=== PATIENT | female | born 1945 | race Caucasian/White ===

== ENCOUNTER → 2017-11-21 09:53 | Outpatient (CLI) | payer MEDICARE, OTHER, SELFPAY ==
[2017-11-21 10:44] LABS: Add Manual Diff / Slide Review NO; Eosinophils Percent Auto 4.2 % (2-4); Hematocrit 42.7 % (36-46); Hemoglobin 14.4 g/dL (12.0-16.0); Lymphocytes Percent Auto 21.2 % (25-40); Mean Corpuscular HGB Conc 33.7 % (30-36); Mean Corpuscular Hemoglobin 30.6 PG (26-34); Mean Corpuscular Volume 90.9 fL (80-100); Monocytes Percent Auto 9.1 % (3-14); Neutrophils Absolute Auto 3800 /uL (3000-5900); Neutrophils Percent Auto 64.5 % (50-75); Platelet Count 236 X10^3/uL (150-400); White Blood Cell Count 5.9 X10^3/uL (4.5-11.0)
[2017-11-21 11:36] LABS: Alanine Aminotransferase 29 IU/L (9-52); Albumin 4.3 g/dL (3.5-5.0); Albumin Globulin Ratio 1.6 (1.0-2.8); Alkaline Phosphatase 98 U/L (38-126); Aspartate Aminotransferase 27 IU/L (14-36); BUN Creatinine Ratio 16.7 (6-22); Bilirubin Total 0.7 mg/dL (0.2-1.3); Blood Urea Nitrogen 15 mg/dL (7-17); Calcium 10.1 mg/dL (8.4-10.2); Carbon Dioxide 30 mmol/L (22-32); Chloride 101 mmol/L (98-107); Cholesterol 197 mg/dL (140-199); Estimated Glomerular Filt Rate > 60.0 mL/min (>60); Globulin 2.7 g/dL (1.7-4.1); Glucose 92 mg/dL (80-110); HDL Cholesterol 56 mg/dL (40-60); HEMOLYSIS < 15 (0-50); LDL Cholesterol Calculated 104 mg/dL (<100); Potassium 4.7 mmol/L (3.4-5.1); Sodium 140 mmol/L (137-145); Triglycerides 185 mg/dL (35-150)
== END ==
PROVIDERS: PCP Family Medicine; Visit Provider Family Medicine
DX: E78.5 Hyperlipidemia, unspecified (principal); I10 Essential (primary) hypertension; I73.9 Peripheral vascular disease, unspecified; D18.03 Hemangioma of intra-abdominal structures; F41.8 Other specified anxiety disorders
CPT/HCPCS: 36415; 80053; 80061; 85025

== ENCOUNTER → 2017-12-26 09:02 | Outpatient (CLI) | payer MEDICARE, OTHER, SELFPAY ==
--- NOTE | 2017-12-26 | DI.ECHO.S_ITS ---
[facility] +---------+ : : [address] : [address] : : : : [id number] : : : : Phone: [phone]+ Echocardiogram Report + + :Name: LELAND GUTIERREZ Study Date: 12/26/2017 Height: 63 in : :[facility] Weight: 141 lb : : Gender: Female BSA: 1.7 m2 : :: 1945 Age: 72 yrs BP: 140/58 mmHg: :Reason For Study: Mitral Valve- Regurgitation : : Performed By: Korin Mcgraw : :Referring: JC LUGO : + + Interpretation Summary 1) Normal left ventricular thickness, size, wall motion, and systolic function (EF 60-65%). 2) Normal right ventricular size and function. 3) There is mild mitral regurgitation. 4) No prior Echo available for comparison. Procedure: A two-dimensional transthoracic echocardiogram with color flow and Doppler was performed. The study quality was technically adequate. There is no prior echocardiogram noted for this patient. The patient was in normal sinus rhythm during the exam. Left Ventricle: The left ventricle is normal in size, wall thickness, and systolic function without any focal wall motion abnormalities. The ejection fraction is estimated to be 60-65%. Assessment of diastolic parameters indicates normal left ventricular diastolic function and normal filling pressures. Right Ventricle: The right ventricle grossly appears normal in size with probable normal systolic function. Atria: The left atrial size is normal. Right atrial size is normal. The interatrial septum is intact with no evidence for an atrial septal defect. Mitral Valve: The mitral valve is grossly normal. There is mild mitral regurgitation. Aortic Valve: The aortic valve is trileaflet. The aortic valve opens well. There is no aortic valve stenosis. No aortic regurgitation is present. Tricuspid Valve: The tricuspid valve is normal in structure and function. There is mild tricuspid regurgitation. The right ventricular systolic pressure is estimated at 27 mmHg assuming a right atrial pressure of 3 mm Hg. Pulmonic Valve: There is no pulmonic valvular regurgitation. Great Vessels: The aortic root is normal size. The dimensions of the ascending aorta are normal. The aortic arch is normal in size. The IVC is of normal diameter and collapses greater than 50% with a sniff. This suggests a low right atrial pressure of 3 mm Hg. Pericardium/ Pleura There is no pericardial effusion. There is no pleural effusion. MMode/2D Measurements & Calculations LVIDd: 4.7 cm Ao root diam: 2.9 cm LVIDs: 2.9 cm Aortic Jxn: 2.0 cm FS: 39.0 % asc Aorta Diam: 2.9 cm EPSS: 0.37 cm Ao Arch Diam (Prox Trans): 2.9 cm IVSd: 0.81 cm LVPWd: 0.74 cm LV xiao. diameter/BSA (cm/m^2): 2.8 LV sys. diameter/BSA (cm/m^2): 1.7 LA dimension: 3.4 cm RA long axis: 4.6 cm LA A2 area: 18.9 cm2 RA area: 15.7 cm2 LA A4 area: 16.2 cm2 RA vol: 45.1 ml LA length (vol): 5.2 cm RA : 27.0 ml/m2 LA vol: 50.1 ml IVC diam: 1.5 cm LA vol index: 30.0 ml/m2 RVDd major: 5.7 cm RVD1 (basal): 2.9 cm RVD2 (mid): 2.4 cm Doppler Measurements & Calculations Ao V2 max: 146.8 cm/sec MV E max amauir: 84.7 cm/sec Ao V2 mean: 98.8 cm/sec MV A max amauri: 84.7 cm/sec Ao max P.6 mmHg MV E/A: 1.0 Ao mean P.5 mmHg Med Peak E' Amauri: 7.4 cm/sec Ao V2 VTI: 35.1 cm E/E' med: 11.5 Lat Peak E' Amauri: 9.3 cm/sec E/E' lat: 9.1 E/e' average: 10.3 MV dec time: 0.22 sec MV P1/2t: 64.0 msec MR ERO: 0.22 cm2 TR max amauri: 242.6 cm/sec MV P1/2t max amauri: 85.1 cm/sec TR max P.5 mmHg MVA(P1/2t): 3.4 cm2 PA V2 max: 87.4 cm/sec PA V2 mean: 61.4 cm/sec PA mean P.7 mmHg PA Accel Time: 0.13 sec MR flow rate: 98.4 cm3/sec MR PISA radius: 0.64 cm Reading Physician:12:10 PM
== END ==
PROVIDERS: Family Provider Family Medicine; PCP Family Medicine; Visit Provider Family Medicine
DX: I08.1 Rheumatic disorders of both mitral and tricuspid valves (principal)
CPT/HCPCS: 93306

== ENCOUNTER → 2018-06-18 10:16 | Outpatient (CLI) | payer MEDICARE, OTHER, SELFPAY ==
[2018-06-18 11:12] LABS: Alanine Aminotransferase 38 IU/L (9-52); Albumin 4.7 g/dL (3.5-5.0); Albumin Globulin Ratio 1.4 (1.0-2.8); Alkaline Phosphatase 102 U/L (38-126); Aspartate Aminotransferase 35 IU/L (14-36); BUN Creatinine Ratio 19.2 (6-22); Bilirubin Total 0.9 mg/dL (0.2-1.3); Blood Urea Nitrogen 23 mg/dL (7-17); Calcium 10.5 mg/dL (8.4-10.2); Carbon Dioxide 27 mmol/L (22-32); Chloride 99 mmol/L (98-107); Cholesterol 183 mg/dL (140-199); Estimated Glomerular Filt Rate 44.3 mL/min (>60); Globulin 3.4 g/dL (1.7-4.1); Glucose 97 mg/dL (80-110); HDL Cholesterol 54 mg/dL (40-60); HEMOLYSIS < 15 (0-50); LDL Cholesterol Calculated 99 mg/dL (<100); Potassium 4.6 mmol/L (3.4-5.1); Sodium 138 mmol/L (137-145); Total Protein 8.1 g/dL (6.3-8.2); Triglycerides 148 mg/dL (35-150)
[2018-06-18 11:43] LABS: Thyroid Stimulating Hormone 2.92 uIU/mL (0.47-4.68)
== END ==
PROVIDERS: PCP Family Medicine; Visit Provider Family Medicine
DX: E78.5 Hyperlipidemia, unspecified (principal)
CPT/HCPCS: 36415; 80053; 80061; 84443

== ENCOUNTER → 2018-07-11 10:39 | Outpatient (REF) | payer MEDICARE, OTHER, SELFPAY | LOC: LAB 10:39 | PROVIDERS: PCP Family Medicine; Visit Provider Family Medicine | DX: R05 Cough (principal) | CPT/HCPCS: 87400 ==

== ENCOUNTER → 2018-08-28 17:06 | Outpatient (CLI) | payer MEDICARE, OTHER, SELFPAY ==
--- NOTE | 2018-08-28 | DI.MRI.S_ITS ---
PROCEDURE: MR LUMBAR SPINE WO CON INDICATIONS: LUMBAR RADICULOPATHY TECHNIQUE: Noncontrast sagittal T1 spin echo and T2 fast echo, sagittal STIR, axial T1 and T2 fast spin echo through the lumbar spine. In cases with scoliosis, additional coronal T2 fast spin echo may be performed. COMPARISON: [facility], CT, CHEST/ABD/PEL WITH CONTRAST, 09/15/2012, 8:52. [facility], CR, L-SPINE 2-3 VIEWS, 07/05/2009, 13:51. FINDINGS: Image quality: Excellent. Alignment and Curvature: There is normal bony alignment. Bone Marrow: Marrow is of normal overall signal. No acute vertebral body compression fractures. Spinal Cord: Conus medullaris terminates at the L1 level. Visualized cord demonstrates normal signal and size. Paraspinous Soft Tissues: No paravertebral masses. Prominent bilateral renal cysts are seen, without suspicious features on these images. T12-L1: Normal appearance. L1-L2: Normal appearance. L2-L3: Moderate loss of disc height is seen. Loss of disc signal is seen. Moderate disc bulge is seen, which is eccentric to the left. Mild facet joint hypertrophy is seen. Moderate bilateral neural foraminal narrowing is seen, left worse than right. There is at least moderate central canal narrowing seen, as on series 5 image 15. L3-L4: Moderate to severe loss of disc height and disc signal are seen. Moderate disc bulge is seen, which is eccentric to the right. Reactive marrow endplate changes are seen, which are hyperintense on T1-weighted and T2-weighted imaging and most consistent with fatty metaplasia (Modic type II changes). Moderate facet hypertrophy is seen, with associated moderate hypertrophy of the ligamentum flavum. There is moderate left-sided and moderate to severe right-sided neural foraminal narrowing seen. There is a degree of compression seen upon the exiting right L3 nerve root. Moderate to severe central canal narrowing is seen. L4-L5: Mild loss of disc height is seen. Loss of disc signal is seen. Moderate generalized disc bulge is seen. Moderate to prominent facet hypertrophy is seen, with associated moderate hypertrophy of the ligamentum flavum. Moderate to severe bilateral neural foraminal narrowing is seen at this level. There is a degree of compression seen upon the exiting nerve roots. Moderate to severe central canal narrowing is seen at this level, as on series 5 image 24. L5-S1: Mild to moderate loss of disc height and disc signal can be seen. Moderate disc bulge is seen, which is eccentric to the left at moderate facet hypertrophy is seen, left worse than right. There is moderate right-sided and moderate to severe left-sided neural foraminal narrowing seen. There is a degree of compression seen upon the exiting left L5 nerve root. Mild central canal narrowing is seen. IMPRESSION: Multiple levels of lumbar spine degenerative change are seen, which are overall most prominent at the L3-L4 and L4-L5 levels. Dictated by: Travis Pablo M.D. on 08/29/2018 at 9:05 Approved by: Travis Pablo M.D. on 08/29/2018 at 9:10
== END ==
PROVIDERS: PCP Family Medicine; Visit Provider Family Medicine
DX: M47.26 Other spondylosis with radiculopathy, lumbar region (principal)
CPT/HCPCS: 72148

== ENCOUNTER → 2018-09-18 09:31 | Outpatient (CLI) | payer MEDICARE, OTHER, SELFPAY | PROVIDERS: PCP Family Medicine; Visit Provider Family Medicine | DX: M54.16 Radiculopathy, lumbar region (principal) | CPT/HCPCS: 95885; 95886; 95910 ==

== ENCOUNTER → 2018-09-24 07:36 | Outpatient (CLI) | payer MEDICARE, OTHER, SELFPAY ==
--- NOTE | 2018-09-24 | DI.US.S_ITS ---
PROCEDURE: US ARTERIAL DUPLEX LE BI INDICATIONS: PERIPHERAL VASCULAR DISEASE TECHNIQUE: Color and pulse Doppler interrogation was performed of both lower extremity arterial systems, with image documentation. COMPARISON: [facility], , ARTERIAL LOW.EXTREMITY UNILAT., 08/05/2009, 14:45. FINDINGS: Distal aorta: 117 cm/s, with triphasic flow. Right lower extremity: Right common iliac artery: 174 cm/s, with monophasic flow. Right external iliac artery: 90 cm/s, with monophasic flow. Common femoral artery: 100 cm/sec, with monophasic flow. Deep femoral artery: 34 cm/sec, with monophasic, retrograde flow. Proximal superficial femoral artery: 42 cm/sec, with monophasic flow. Mid superficial femoral artery: 52 cm/sec, with monophasic flow. Distal superficial femoral artery: 38 cm/sec, with monophasic flow. Popliteal artery: 37 cm/sec, with monophasic flow. Posterior tibial artery: Distally 15 cm/sec, with monophasic flow. Anterior tibial artery/dorsalis pedis: 15 cm/sec, with monophasic flow. Edwards-scale imaging description: The right common femoral artery appears occluded distally. Left lower extremity: Common iliac artery: 217 cm/s, with biphasic flow. External iliac artery: 190 cm/s, with biphasic flow. Common femoral artery: 326 cm/sec, with triphasic flow proximally and biphasic flow within the mid and distal aspects. Deep femoral artery: 155 cm/sec, with biphasic flow. Proximal superficial femoral artery: 138 cm/sec, with biphasic flow. Mid superficial femoral artery: 77 cm/sec, with biphasic flow. Distal superficial femoral artery: 71 cm/sec, with biphasic flow. Popliteal artery: 60 cm/sec, with biphasic flow. Posterior tibial artery: 14 cm/sec, with biphasic flow. Anterior tibial artery/dorsalis pedis: 50 cm/sec, with biphasic flow. Edwards-scale imaging description: The left common femoral artery demonstrates dense calcification. 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 Elevated flow velocities are seen within the left common femoral artery, left profunda femoris artery, the right common iliac artery, the left common iliac artery, and the left external iliac artery, which are consistent with greater than 50% stenoses. Dictated by: Travis Pablo M.D. on 09/24/2018 at 11:04 Approved by: Travis Pablo M.D. on 09/24/2018 at 11:11
== END ==
PROVIDERS: PCP Family Medicine; Visit Provider Family Medicine
DX: I70.201 Unspecified atherosclerosis of native arteries of extremities, right leg (principal)
CPT/HCPCS: 93925

== ENCOUNTER 2019-02-27 13:50 | Emergency (ER) | payer MEDICARE, OTHER, SELFPAY ==
[2019-02-27 13:52] VITALS: BP 134/69; PULSE 71; RESP 18; TEMP 36.3; O2SAT 96; BMI 25.1
--- NOTE | 2019-02-27 13:57 | DI.CT.S_ITS ---
PROCEDURE: CT HEAD/BRAIN WO CON INDICATIONS: Code stroke TECHNIQUE: Noncontrast 4.5 mm thick angled axial sections acquired from the foramen magnum to the vertex, with coronal and sagittal reformats. For radiation dose reduction, the following was used: automated exposure control, adjustment of mA and/or kV according to patient size. COMPARISON: [facility], , SPECIMEN RADIOGRAPH, 09/25/2012, 16:06. FINDINGS: Image quality: Diagnostic. CSF spaces: Basal cisterns are patent. No extra-axial fluid collections. Ventricles are normal in size and shape. However, there is minimal volume loss involving the bilateral frontal lobes. Brain: No midline shift. No intracranial masses or hemorrhage. Edwards-white matter interface is normal. Skull and face: Calvarium and visualized facial bones are intact, without suspicious lesions. Sinuses: Visualized sinuses and mastoids are clear. IMPRESSION: Essentially unremarkable head CT. No acute intracranial hemorrhage. Note: Findings were discussed with Dr. Forrest at 1420 hours (PST) on 02/27/19. Dictated by: Helder Rose M.D. on 02/27/2019 at 13:20 Approved by: Helder Rose M.D. on 02/27/2019 at 13:21
[2019-02-27 14:06] VITALS: BP 137/58; PULSE 72; RESP 18; O2SAT 97
[2019-02-27 14:10] LABS: Add Manual Diff / Slide Review NO; Basophils Absolute Auto 0 /uL (0-100); Basophils Percent Auto 0.5 % (0-2); Eosinophils Absolute Auto 300 /uL (0-450); Eosinophils Percent Auto 3.6 % (2-4); Hematocrit 39.9 % (36-46); Hemoglobin 13.8 g/dL (12.0-16.0); Lymphocytes Absolute Auto 1800 /uL (1100-4500); Mean Corpuscular HGB Conc 34.7 % (30-36); Mean Corpuscular Hemoglobin 31.7 PG (26-34); Mean Corpuscular Volume 91.4 fL (80-100); Monocytes Absolute Auto 700 /uL (0-900); Monocytes Percent Auto 8.5 % (3-14); Neutrophils Absolute Auto 5200 /uL (1500-7000); Neutrophils Percent Auto 65.4 % (50-75); Platelet Count 221 X10^3/uL (150-400); Red Blood Cell Count 4.36 X10^6/uL (4.0-5.2)
--- NOTE | 2019-02-27 14:14 | ED_ITS ---
HPI - Neuro Symptoms/Deficit General Chief Complaint: Neuro Symptoms/Deficit Stated Complaint: Left eye blurry Time Seen by Provider: 02/27/19 13:56 Source: patient Mode of arrival: Ambulatory Limitations: no limitations History of Present Illness HPI Narrative: 73-year-old female was initially a code stroke here for evaluation of blurry vision to her left eye. Symptoms occurred just prior to arrival here in the emergency department. Upon my evaluation patient stated that she had no other symptoms associated with this blurry vision however in triage she did state that she was having some tingling on the left side of her face. At the time my evaluation patient was completely asymptomatic. She was unsure as to how long her symptoms lasted however she thought it was less than 15 minutes syncopal 10 should be less than 10 minutes. No fevers. No prior history of this. On Anticoagulants: No Related Data Home Medications Medication Instructions Recorded Confirmed aspirin 81 mg PO DAILY #0 07/21/17 02/27/19 atorvastatin [Lipitor] 80 mg PO BEDTIME #0 07/21/17 02/27/19 cholecalciferol (vitamin D3) 5,000 unit PO DAILY #0 07/21/17 02/27/19 hydrochlorothiazide 25 mg PO DAILY #0 07/21/17 02/27/19 lisinopril 10 mg PO DAILY #0 07/21/17 02/27/19 Previous Rx's Medication Instructions Recorded gabapentin 300 mg capsule 300 mg PO TID #90 cap 12/29/18 Allergies Allergy/AdvReac Type Severity Reaction Status Date / Time SULFA (sulfonamide) Allergy Unknown Uncoded 12/29/18 09:37 Review of Systems Constitutional Constitutional: Denies fever(s) and Denies headache(s) Eyes Comments: Blurry vision to left eye ENT Ears, Nose, Mouth, and Throat: Denies headache(s) Cardiovascular Cardiovascular: Denies chest pain and Denies dyspnea Respiratory Respiratory: Denies cough and Denies dyspnea Gastrointestinal Gastrointestinal: Denies abdominal pain, Denies nausea and Denies vomiting Musculoskeletal Musculoskeletal: Denies myalgias and Denies arthralgias Integumentary/Breasts Skin/Breast: Denies lesions and Denies rash Neurologic Neurologic: Denies headache(s) Comments: Tingling left side of face Hematologic/Lymphatic Hematologic/Lymphatic: Denies easy bleeding and Denies easy bruising Patient History Medical History Anxiety (Inactive) History of bladder cancer (Resolved) Lumbosacral radiculopathy at L4 (Inactive) Lumbosacral spondylosis with radiculopathy (Inactive) Social History marital status: lives independently: Yes Exam Initial Vital Signs Initial Vital Signs: Vital Signs Temperature 97.3 F L 02/27/19 13:52 Pulse Rate 71 02/27/19 13:52 Respiratory Rate 18 02/27/19 13:52 Blood Pressure 134/69 02/27/19 13:52 Pulse Oximetry 96 02/27/19 13:52 Const General: cooperative, healthy appearing, comfortable, well developed, well groomed and No acute distress Orientation: alert, awake and oriented x3 HENMT Head: normal to inspection and normocephalic Eyes General: appearance normal, both eyes and all related structures Alignment and Position: alignment normal Periorbital: periorbital findings normal Eyelids: eyelids normal Conjunctivae: conjunctivae normal Pupils: PERRL EOM: EOM intact bilaterally Resp Effort & Inspection: normal respiratory effort Auscultation: clear to auscultation bilaterally Cardio Rate: regular rate Rhythm: regular rhythm GI Inspection: non-distended Palpation: soft, No firm and tender Skin Lesions: no lesions Rashes: no rashes Neuro General: alert, awake and oriented x3 Cranial Nerves: CN's II-XI intact bilaterally Cognition: normal cognition Gait: normal gait Motor: muscle tone normal throughout Sensory Exam: no sensory deficits noted Coordination: [id number] test normal Extrem General: normal to inspection and capillary refill normal Psych Appearance: grossly normal and well kempt Scores ABCD2 Age >= 60 years: yes Initial BP. Either SBP >= 140 or DBP >= 90.: no Clinical features of the TIA: other symptoms Duration of symptoms: 10-59 minutes History of diabetes: no ABCD2 Score: 2 GCS Ayleen coma scale eye opening: Spontaneous Cowdrey coma scale verbal response: Orientated Ayleen coma scale motor response: Obey commands Cowdrey coma scale total score: 15 NIH Stroke Scale Level of Conciousness: Alert, keenly responsive Ask month/age: Answers both questions correctly. Open/close eyes, close hand: Performs both tasks correctly Best gaze horizontal: Normal Visual winter: No visual loss Facial palsy: Normal symetrical movement Left arm drift: No drift for full 10 sec Right arm drift: No drift for full 10 sec Left leg drift: No drift for full 10 sec Right leg drift: No drift for full 10 sec Limb ataxia: Absent Sensory on face/arms/legs: Normal, no sensory loss Best language: No aphasia, normal Dysarthria: Normal Extinction or inattention: No abnormality Total NIH Stroke scale score: 0 Course Orders Ordered: ED Orders 02/27/19 13:05 Complete Blood Count AUTO DIFF Stat Comprehensive Metabolic Panel Stat Lipase Stat Partial Thromboplastin Time Stat Prothrombin Time INR Stat Troponin I Stat 02/27/19 13:57 CT head/brain wo con Stat EKG-12 Lead Stat Vital Signs Vital signs: Vital Signs - 8 hr 02/27/19 13:52 02/27/19 14:06 02/27/19 14:30 Temperature 97.3 F L Pulse Rate 71 72 65 Respiratory Rate 18 18 14 Blood Pressure 134/69 Blood Pressure [Left Arm] 137/58 L 128/47 L Pulse Oximetry 96 97 99 MDM - Neuro Symptoms/Deficit Lab Data Attestation: I reviewed the patient's lab results. Result diagrams: 02/27/19 13:05 02/27/19 13:05 Labs: Lab Results 02/27/19 02/27/19 02/27/19 Range/Units 13:05 13:05 13:05 WBC 8.0 (4.5-11.0) X10^3/uL RBC 4.36 (4.0-5.2) X10^6/uL Hgb 13.8 (12.0-16.0) g/dL Hct 39.9 (36-46) % MCV 91.4 (80-100) fL MCH 31.7 (26-34) PG MCHC 34.7 (30-36) % RDW 14.0 (11.6-14.8) % Plt Count 221 (150-400) X10^3/uL Neut % (Auto) 65.4 (50-75) % Lymph % (Auto) 22.0 L (25-40) % Marshall % (Auto) 8.5 (3-14) % Eos % (Auto) 3.6 (2-4) % Baso % (Auto) 0.5 (0-2) % Neut # (Auto) 5200 (4233-2991) /uL Lymph # (Auto) 1800 (6371-5656) /uL Marshall # (Auto) 700 (0-900) /uL Eos # (Auto) 300 (0-450) /uL Baso # (Auto) 0 (0-100) /uL PT 10.4 (10.1-12.7) SECONDS INR 0.9 (0.9-1.3) APTT 32 (26.4-36.2) SECONDS Sodium 138 (137-145) mmol/L Potassium 4.3 (3.4-5.1) mmol/L Chloride 104 (98-107) mmol/L Carbon Dioxide 25 (22-32) mmol/L BUN 29 H (7-17) mg/dL Creatinine 1.00 (0.52-1.04) mg/dL Estimated GFR 54.5 L (>60) mL/min BUN/Creatinine Ratio 29.0 H (6-22) Glucose 103 (80-110) mg/dL Calcium 10.0 (8.4-10.2) mg/dL Total Bilirubin 0.6 (0.2-1.3) mg/dL AST 33 (14-36) IU/L ALT 23 (9-52) IU/L Alkaline Phosphatase 80 (38-126) U/L Troponin I < 0.012 (0.01-0.034) ng/mL Total Protein 7.4 (6.3-8.2) g/dL Albumin 4.4 (3.5-5.0) g/dL Globulin 3.0 (1.7-4.1) g/dL Albumin/Globulin Ratio 1.5 (1.0-2.8) Lipase 162 (23-300) U/L Imaging Data CT scan - head: Radiologist's impression: [address] [address] [address] Scan Report Signed Patient: Miriam Ovalles LMR#: [id number] : 7Acct:[id number] Age/Sex: 73 / FDate of Service: 02/27/19 Loc: ED Accession Number: [id number] Procedure: CT head/brain wo con Ordering Provider: Guy Forrest D.O. PROCEDURE: CT HEAD/BRAIN WO CON INDICATIONS: Code stroke TECHNIQUE: Noncontrast 4.5 mm thick angled axial sections acquired from the foramen magnum to the vertex, with coronal and sagittal reformats. For radiation dose reduction, the following was used: automated exposure control, adjustment of mA and/or kV according to patient size. COMPARISON: [facility], , SPECIMEN RADIOGRAPH, 09/25/2012, 16:06. FINDINGS: Image quality: Diagnostic. CSF spaces: Basal cisterns are patent. No extra-axial fluid collections. Ventricles are normal in size and shape. However, there is minimal volume loss involving the bilateral frontal lobes. Brain: No midline shift. No intracranial masses or hemorrhage. Edwards-white matter interface is normal. Skull and face: Calvarium and visualized facial bones are intact, without suspicious lesions. Sinuses: Visualized sinuses and mastoids are clear. IMPRESSION: Essentially unremarkable head CT. No acute intracranial hemorrhage. Note: Findings were discussed with Dr. Forrest at 1420 hours (PST) on 02/27/19. Dictated by: Helder Rose M.D. on 02/27/2019 at 13:20 Approved by: Helder Rose M.D. on 02/27/2019 at 13:21 ECG Data Attestation: I personally reviewed and interpreted this ECG as follows: Prior ECG tracings: not available for review Interpretation: Sinus bradycardia Ventricular rate of 51 Normal axis Normal QRS Normal QTC No ST T wave changes MDM Narrative Medical decision making narrative: Asymptomatic the time of my evaluation. It was a code stroke called however after further evaluation I suspect this is more of a ocular issue not a stroke issue. NIH score was 0. ABCD2 score low risk. GCS of 15. Head CT is unremarkable. EKG is unremarkable. I did discuss the case with Dr. Evangelista with Ophthalmology who stated that he would be happy to see the patient this afternoon. We will hold on further workup for now here in the emergency department and sent her over to ophthalmology for further evaluation. Patient was given this instructions. She expressed understanding and agreement plan. Discharge Plan Departure Patient Disposition: Home Clinical Impression: Blurred vision, left eye Discharge Date/Time: 02/27/19 15:01 Activity Restrictions/Additional Instructions: I recommend that upon discharge from the emergency department you go directly to the ophthalmology department here at the hospital. Dr. Evangelista stated that he would be willing to see this afternoon for further evaluation of your left eye changes. Return to the emergency department for any new or worsening symptoms. Contact your primary provider for follow-up after your ophthalmology visit. Prescriptions: No Action lisinopril 10 MG tablet 10 mg PO DAILY Qty: 0 RF: 0 hydrochlorothiazide 25 MG tablet 25 mg PO DAILY Qty: 0 RF: 0 atorvastatin [Lipitor] 80 MG tablet 80 mg PO BEDTIME Qty: 0 RF: 0 aspirin 81 MG tablet,delayed release (DR/EC) 81 mg PO DAILY Qty: 0 RF: 0 cholecalciferol (vitamin D3) 5,000 UNIT capsule 5,000 unit PO DAILY Qty: 0 RF: 0 gabapentin 300 mg capsule 300 mg PO TID Qty: 90 RF: 2 Referrals: Hannah Shell MD [Primary Care Provider] -
[2019-02-27 14:17] LABS: INR 0.9 (0.9-1.3); Prothrombin Time 10.4 SECONDS (10.1-12.7)
[2019-02-27 14:20] LABS: PTT Partial Thromboplastin Tim 32 SECONDS (26.4-36.2)
[2019-02-27 14:22] LABS: Alanine Aminotransferase 23 IU/L (9-52); Albumin 4.4 g/dL (3.5-5.0); Albumin Globulin Ratio 1.5 (1.0-2.8); Alkaline Phosphatase 80 U/L (38-126); Aspartate Aminotransferase 33 IU/L (14-36); Bilirubin Total 0.6 mg/dL (0.2-1.3); Blood Urea Nitrogen 29 mg/dL (7-17); Carbon Dioxide 25 mmol/L (22-32); Chloride 104 mmol/L (98-107); Estimated Glomerular Filt Rate 54.5 mL/min (>60); Glucose 103 mg/dL (80-110); HEMOLYSIS 22 (0-50); Lipase 162 U/L (23-300); Potassium 4.3 mmol/L (3.4-5.1); Sodium 138 mmol/L (137-145); Total Protein 7.4 g/dL (6.3-8.2)
[2019-02-27 14:30] VITALS: BP 128/47; PULSE 65; RESP 14; O2SAT 99
[2019-02-27 14:33] LABS: Troponin I < 0.012 ng/mL (0.01-0.034)
== END 2019-02-27 15:01 | disposition home or self-care (01) ==
PROVIDERS: Emergency Provider Emergency Medicine; PCP Family Medicine
DX: H53.8 Other visual disturbances (principal); R00.1 Bradycardia, unspecified
CPT/HCPCS: 36415; 70450; 80053; 83690; 84484; 85025; 85610; 85730; 93005; 99282; 99285

== ENCOUNTER 2020-08-30 14:13 | Emergency (ER) | payer MEDICARE, OTHER, SELFPAY ==
[2020-08-30 14:25] VITALS: BP 172/74; PULSE 73; RESP 18; TEMP 36.6; O2SAT 98
--- NOTE | 2020-08-30 14:31 | DI.RAD.S_ITS ---
PROCEDURE: XR KNEE LT 3V INDICATIONS: glf TECHNIQUE: 3 views of the knee were acquired. COMPARISON: None. FINDINGS: Bones: No fractures or dislocations. No suspicious bony lesions. Lateral patellar tilt incidentally noted. Joint spaces grossly preserved. Soft tissues: No joint effusion. No suspicious soft tissue calcifications. IMPRESSION: No fracture. If the patient's symptoms do not improve recommend followup radiographs in 10 days to assess for healing sclerosis/occult injury. Dictated by: Eric Barragan M.D. on 08/30/2020 at 15:41 Approved by: Eric Barragan M.D. on 08/30/2020 at 15:42
--- NOTE | 2020-08-30 16:11 | ED_ITS ---
HPI - Extremity Injury (Lower) General Chief Complaint: Extremity Injury, Lower Stated Complaint: LEFT KNEE CAP Time Seen by Provider: 08/30/20 16:10 Source: patient Mode of arrival: Ambulatory Limitations: no limitations History of Present Illness HPI Narrative: 74-year-old female comes emergency department with complaint of left patellar pain. Patient states that she slipped on 1 of the runner drugs in her home and fell down onto her knees. Since then she has had pain in the left kneecap. She has more discomfort if she was having. It is sort of over the kneecap but a little bit internally as well. She has not pursued any redness, swelling or skin changes. She does note that is a little bit uncomfortable when she weightbears but she is able to walk without major difficulty. Patient denies any numbness, tingling or weakness. She does not feel like her knee is unstable. She does note that if she turns quickly this will sometimes increase her pain. She has been taking Advil for pain at home. She states she is allergic to sulfa. Denies any other symptoms currently. Related Data Home Medications Medication Instructions Recorded Confirmed aspirin 81 mg PO DAILY #0 07/21/17 02/27/19 atorvastatin [Lipitor] 80 mg PO BEDTIME #0 07/21/17 02/27/19 cholecalciferol (vitamin D3) 5,000 unit PO DAILY #0 07/21/17 02/27/19 hydrochlorothiazide 25 mg PO DAILY #0 07/21/17 02/27/19 lisinopril 10 mg PO DAILY #0 07/21/17 02/27/19 Previous Rx's Medication Instructions Recorded gabapentin 300 mg capsule See Rx Instructions .ROUTE 06/22/20 .COMPLEX #90 capsule Allergies Allergy/AdvReac Type Severity Reaction Status Date / Time SULFA (sulfonamide) Allergy Unknown Uncoded 12/29/18 09:37 Review of Systems Review of Systems ROS Unobtainable: All systems reviewed & are unremarkable except as noted in HPI and below Patient History Medical History (Updated 08/30/20 @ 16:25 by Marbella Gorman DO) Anxiety History of bladder cancer Lumbosacral radiculopathy at L4 Lumbosacral spondylosis with radiculopathy Social History marital status: lives independently: Yes Exam Narrative Exam Narrative: GENERAL: Alert and oriented x three, well-nourished female in mild distress. HEENT: Head normocephalic, atraumatic, EOMI, pupils reactive, face symmetric, moist mucous membranes NECK: Supple, full range of motion EXTREMITIES: Normal range of motion, no clubbing or edema. Neurovascularly intact. Patient does not have any discrete bony tenderness in her left lower extremity. No warmth, erythema. Patient does have some mild swelling infrapatellar. Patient does not have any laxity of the patella itself. No pain over palpation of the tendons for the patella. Patient has no joint laxity appreciated. She does have increased pain with anterior drawer. Negative compression test. NEUROLOGICAL: Cranial nerves II through XII grossly intact. Moving all e xtremities SKIN: Warm, dry, no petechiae, no rashes or lesions. Initial Vital Signs Initial Vital Signs: Vital Signs Temperature 97.8 F 08/30/20 14:25 Pulse Rate 73 08/30/20 14:25 Respiratory Rate 18 08/30/20 14:25 Blood Pressure 172/74 H 08/30/20 14:25 Pulse Oximetry 98 08/30/20 14:25 Course Orders Ordered: ED Orders 08/30/20 14:31 XR knee LT 3V Stat Vital Signs Vital signs: Vital Signs - 8 hr 08/30/20 14:25 Temperature 97.8 F Pulse Rate 73 Respiratory Rate 18 Blood Pressure 172/74 H Pulse Oximetry 98 MDM - Extremity Injury (Lower) Imaging Data Extremity x-ray #1: Radiologist's Impression: [address] [id number] ReportSigned Patient: Miriam Ovalles LMR#: [id number]: 7Acct:[id number]/Sex: 8 3 FDate of Service: 08/30/20Loc: EDAccession Number: [id number] Procedure: XR knee LT 3V Ordering Provider: Guy Forrest D.O. PROCEDURE: XR KNEE LT 3V INDICATIONS: glf TECHNIQUE: 3 views of the knee were acquired. COMPARISON: None. FINDINGS: Bones: No fractures or dislocations. No suspicious bony lesions. Lateral patellar tilt incidentally noted. Joint spaces grossly preserved. Soft tissues: No joint effusion. No suspicious soft tissue calcifications. IMPRESSION: No fracture. If the patient's symptoms do not improve recommend followup radiographs in 10 days to assess for healing sclerosis/occult injury. Dictated by: Eric Barragan M.D. on 08/30/2020 at 15:41 Approved by: Eric Barragan M.D. on 08/30/2020 at 15:42 [facility] Narrative Medical decision making narrative: This is a 74-year-old female who had a slip and fall onto her left knee and has had pain in the left patellar region since. Patient is able to weight bear. She has normal testing although she does have pain with anterior drawer but no obvious laxity. X-ray does not show any acute changes. Patient defers any knee immobilizer or crutches and feels comfortable ambulating without assistance. Plan for NSAIDs and RICE. Patient I discussed follow-up and signs and symptoms to watch for. Discharge Plan Departure Patient Disposition: Home Clinical Impression: Strain of left knee Activity Restrictions/Additional Instructions: Follow up with your physician in the next 7-10 days for recheck if your symptoms have not resolved. You may continue to take Advil as needed for pain. You may take Tylenol up to a 1000 mg every 8 hours in addition to Advil as needed. Elevated affected body part to decrease swelling. OK to use ice pack on the affected body part. Use for 15-20 minutes each time, for 5-6x per day. If you develop worsening pain, numbness, tingling, discoloration of the affected body part, and either see your doctor for an urgent re-assessment, or return to the Emergency Department. Return to the Emergency Department for any new or worsening symptoms. Prescriptions: No Action lisinopril 10 MG tablet 10 mg PO DAILY Qty: 0 RF: 0 hydrochlorothiazide 25 MG tablet 25 mg PO DAILY Qty: 0 RF: 0 atorvastatin [Lipitor] 80 MG tablet 80 mg PO BEDTIME Qty: 0 RF: 0 aspirin 81 MG tablet,delayed release (DR/EC) 81 mg PO DAILY Qty: 0 RF: 0 cholecalciferol (vitamin D3) 5,000 UNIT capsule 5,000 unit PO DAILY Qty: 0 RF: 0 gabapentin 300 mg capsule See Rx Instructions .ROUTE .COMPLEX Qty: 90 RF: 2 Referrals: Hannah Shell MD [Primary Care Provider] -
== END 2020-08-30 17:41 | disposition home or self-care (01) ==
PROVIDERS: Emergency Provider Emergency Medicine; PCP Family Medicine
DX: S83.8X2A Sprain of other specified parts of left knee, initial encounter (principal); W19.XXXA Unspecified fall, initial encounter
CPT/HCPCS: 73562; 99281; 99283

== ENCOUNTER 2020-09-08 12:57 | Emergency (ER) | payer MEDICARE, OTHER, SELFPAY ==
[2020-09-08 13:09] VITALS: BP 202/84; PULSE 77; RESP 16; TEMP 37; O2SAT 97; BMI 25.6
--- NOTE | 2020-09-08 14:29 | ED_ITS ---
HPI - Wound/Laceration General Chief Complaint: Wound/Laceration Stated Complaint: fell today and hurt face Time Seen by Provider: 09/08/20 14:18 Source: patient Mode of arrival: Ambulatory Limitations: no limitations History of Present Illness HPI narrative: Patient is a 74-year-old female who fell in her garden today and hit the left side of her face on a sprinkler. There was no loss of consciousness. Sustained no other injuries from the fall except the cut the left side of her face. She is not on blood thinners. Related Data Home Medications Medication Instructions Recorded Confirmed aspirin 81 mg PO DAILY #0 07/21/17 02/27/19 atorvastatin [Lipitor] 80 mg PO BEDTIME #0 07/21/17 02/27/19 cholecalciferol (vitamin D3) 5,000 unit PO DAILY #0 07/21/17 02/27/19 hydrochlorothiazide 25 mg PO DAILY #0 07/21/17 02/27/19 lisinopril 10 mg PO DAILY #0 07/21/17 02/27/19 Previous Rx's Medication Instructions Recorded gabapentin 300 mg capsule See Rx Instructions .ROUTE 06/22/20 .COMPLEX #90 capsule Allergies Allergy/AdvReac Type Severity Reaction Status Date / Time SULFA (sulfonamide) Allergy Unknown Uncoded 12/29/18 09:37 Review of Systems Constitutional Constitutional: Denies headache(s) Eyes Eyes: Denies change in vision ENT Ears, Nose, Mouth, and Throat: Denies dizziness, Denies headache(s), Denies disequilibrium and Denies sore throat Integumentary/Breasts Comments: Cut to left side of face Neurologic Neurologic: Denies dizziness, Denies headache(s) and Denies disequilibrium Hematologic/Lymphatic On Anticoagulants: No Patient History Medical History Anxiety History of bladder cancer Lumbosacral radiculopathy at L4 Lumbosacral spondylosis with radiculopathy Social History marital status: lives independently: Yes Exam Initial Vital Signs Initial Vital Signs: Vital Signs Temperature 98.6 F 09/08/20 13:09 Pulse Rate 77 09/08/20 13:09 Respiratory Rate 16 09/08/20 13:09 Blood Pressure 202/84 H 09/08/20 13:09 Pulse Oximetry 97 09/08/20 13:09 Const General: cooperative and comfortable Limitations: mental status not altered HENMT Head: normal to inspection Ears: TM's normal bilaterally Nose: external nose normal Face and sinus: no maxillary instability and other (Cut to left side of face) Mouth: oral mucosae normal Teeth and gingiva: dentition normal Eyes Visual Winter: normal visual winter by confrontation Resp Effort & Inspection: normal respiratory effort Skin Other: 5 cm laceration along the left nasal labial fold. Does not involve the l ip. Does not involve the nose. Neuro General: patient alert, patient awake and patient oriented x3 Speech: speech normal Extrem General: capillary refill normal Psych Appearance: grossly normal and well kempt Procedures Laceration Repair Laceration 1: Site: face Side (If applicable): left Size (cm): 5 Description: linear Depth: simple, single layer Local Anesthetic: lidocaine 1% and with bicarb Amount of anesthesia used (mL): 5 Pre-repair: wound explored and deep structures intact Skin layer closed with: other (Chromic) Size (cm): 5-0 Number of sutures: 10 Technique: simple, interrupted Course Orders Ordered: Discontinued Medications Bacitracin (Bacitracin Oint 0.9 Gm Pckt) 1 applic TOP NOW ONE Stop: 09/08/20 14:31 Last Admin: 09/08/20 14:38 Dose: 1 applic Documented by: GOVIND Diphtheria/Tetanus/Acell Pertussis (Tet,Diph,Pertuss(Acell),Vac/Pf 0.5 Ml Syringe) 0.5 ml IM .ONCE ONE Stop: 09/08/20 13:21 Last Admin: 09/08/20 15:06 Dose: Not Given Documented by: KBROTEM Lidocaine/Sodium Bicarbonate (Lido 1%/Sod Bicarb 8.4% (10ml) 10 Ml Syringe) 10 ml INJ NOW ONE Stop: 09/08/20 14:31 Last Admin: 09/08/20 14:38 Dose: 10 ml Documented by: GOVIND Vital Signs Vital signs: Vital Signs - 8 hr 09/08/20 13:09 09/08/20 15:27 Temperature 98.6 F Pulse Rate 77 77 Respiratory Rate 16 16 Blood Pressure 202/84 H 154/76 H Pulse Oximetry 97 97 MDM - Wound/Laceration MDM Narrative Medical decision making narrative: The only injury found on the exam and reported from the patient is a cut to the left side of her face. It was closed as described above. Initially it was stated that the patient needed an update of her tetanus however she states she has had her tetanus shot within the past 5 years. Patient was given care instructions and return precautions. She expressed understanding and agreement. Discharge Plan Departure Patient Disposition: Home Clinical Impression: Laceration Instructions: DI for Laceration Repair Activity Restrictions/Additional Instructions: The stitches that were placed are absorbable however if they are still there in 7 days the should be removed. You can shower like normal. You can cover with an antibiotic ointment. Return to the emergency department for any new or worsening symptoms Prescriptions: No Action lisinopril 10 MG tablet 10 mg PO DAILY Qty: 0 RF: 0 hydrochlorothiazide 25 MG tablet 25 mg PO DAILY Qty: 0 RF: 0 atorvastatin [Lipitor] 80 MG tablet 80 mg PO BEDTIME Qty: 0 RF: 0 aspirin 81 MG tablet,delayed release (DR/EC) 81 mg PO DAILY Qty: 0 RF: 0 cholecalciferol (vitamin D3) 5,000 UNIT capsule 5,000 unit PO DAILY Qty: 0 RF: 0 gabapentin 300 mg capsule See Rx Instructions .ROUTE .COMPLEX Qty: 90 RF: 2 Referrals: Hannah Shell MD [Primary Care Provider] -
[2020-09-08] MEDS: BACITRACIN OINT 0.9 GM PCKT 1 APPLIC TOP (14:38)
[2020-09-08] MEDS: LIDO 1%/SOD BICARB 8.4% (10ML) 10 ML SYRINGE INJ (14:38)
[2020-09-08 15:27] VITALS: BP 154/76; PULSE 77; RESP 16; O2SAT 97
== END 2020-09-08 15:27 | disposition home or self-care (01) ==
PROVIDERS: Emergency Provider Emergency Medicine; PCP Family Medicine
DX: S01.81XA Laceration without foreign body of other part of head, initial encounter (principal); W18.09XA Striking against other object with subsequent fall, initial encounter; Z23 Encounter for immunization
CPT/HCPCS: 12013; 90471; 99283

== ENCOUNTER → 2021-03-17 12:08 | Outpatient (CLI) | payer MEDICARE, OTHER, SELFPAY ==
--- NOTE | 2021-03-17 | DI.MRI.S_ITS ---
PROCEDURE: MR HEAD/BRAIN WO CON INDICATIONS: Other symptoms and signs involving cognitive functions and a TECHNIQUE: Non-contrast axial T1 spin echo, axial T2 fast spin echo, sagittal and axial FLAIR, coronal T2 fast spin echo, axial gradient echo, axial diffusion and ADC through the brain. COMPARISON: None. FINDINGS: Image quality: Excellent. CSF spaces: Ventricles appear symmetric in size and shape. Basal cisterns are patent. No extra-axial fluid collections. Brain: No intracranial bleeds or mass effects. There is cerebral volume loss for age. There are periventricular and deep white matter chronic small vessel ischemic changes. Brainstem appears normal. Diffusion-weighted images show no acute ischemic insults. No chronic ischemic insults. Normal intravascular flow voids are present. Skull and face: Calvarial bone marrow is normal in signal. Orbits are normal. Sinuses: Sinuses and mastoids are clear. IMPRESSION: Moderate atrophy chronic ischemic change without acute hemorrhage, infarct or mass lesion Approved by: Juan Carney M.D. on 03/17/2021 at 14:16
== END ==
PROVIDERS: PCP Family Medicine; Referring Provider Family Medicine; Visit Provider Family Medicine
DX: R41.89 Other symptoms and signs involving cognitive functions and awareness (principal)
CPT/HCPCS: 70551

== ENCOUNTER → 2021-09-22 07:26 | Outpatient (CLI) | payer MEDICARE, OTHER, SELFPAY ==
--- NOTE | 2021-09-22 | DI.MG.S_ITS ---
BILATERAL DIGITAL SCREENING MAMMOGRAM 3D/2D WITH CAD: 09/22/2021 CLINICAL: Routine screening. Comparison is made to exams dated: 10/20/2018 mammogram, 10/10/2017 mammogram, 09/07/2020 mammogram, 10/03/2016 mammogram, and 09/30/2015 mammogram - [facility]. There are scattered fibroglandular elements in both breasts. Current study was also evaluated with a Computer Aided Detection (CAD) system. No significant masses, calcifications, or other findings are seen in either breast. There has been no significant interval change. IMPRESSION: NEGATIVE There is no mammographic evidence of malignancy. A 1 year screening mammogram is recommended. This exam was interpreted at Station ID: [id number]. NOTE: For mammograms, a report in lay terms will be sent to the patient. Approximately 15% of breast malignancies will not be visualized mammographically. In the management of a palpable breast mass, a negative mammogram must not discourage biopsy of a clinically suspicious lesion. Electronically Signed By: Jef dove/ce:09/22/2021 08:31:09 letter sent: Normal Exam ACR BI-RADS Category 1: Negative [id number]
== END ==
PROVIDERS: PCP Family Medicine; Referring Provider Family Medicine; Visit Provider Family Medicine
DX: Z12.31 Encounter for screening mammogram for malignant neoplasm of breast (principal)
CPT/HCPCS: 77063; 77067

== ENCOUNTER → 2021-09-29 08:33 | Outpatient (CLI) | payer MEDICARE, OTHER, SELFPAY ==
--- NOTE | 2021-09-29 | DI.MRI.S_ITS ---
PROCEDURE: MR HEAD/BRAIN WO/W CON INDICATIONS: Other symptoms and signs involving cognitive TECHNIQUE: Noncontrast axial T1 spin echo, axial T2 fast spin echo, sagittal and axial FLAIR, coronal T2 fast spin echo, axial gradient echo, axial diffusion and ADC through the brain. After the administration of contrast, axial and coronal T1 spin echo with fat saturation through the brain. COMPARISON: [facility], MR, MR HEAD/BRAIN WO CON, 03/17/2021, 12:47. FINDINGS: Image quality: Excellent. CSF spaces: Basal cisterns are patent. No extra-axial fluid collections. Ventricles are normal in size and shape. Brain: No midline shift. No intracranial bleeds or masses. No abnormal intracranial enhancement. There is cerebral volume loss for age. There is periventricular white matter chronic small vessel ischemic change. The brainstem appears normal. Diffusion-weighted images demonstrate no acute ischemic insults. No chronic ischemic insults. Normal intravascular flow voids are present. Skull and face: Calvarial marrow is normal in signal. Orbits appear normal. Sinuses: Sinuses and mastoids appear clear. IMPRESSION: 1. No acute intracranial disease process. 2. No abnormal intracranial mass or mass effect. 3. No suspicious postcontrast enhancement. 4. Mild, diffuse cerebral volume loss. 5. Mild periventricular and subcortical white matter chronic microvascular ischemic change. Dictated by: Marychuy Arambula MD, PhD on 09/29/2021 at 11:39 Approved by: Marychuy Arambula MD, PhD on 09/29/2021 at 11:44
== END ==
PROVIDERS: PCP Family Medicine; Referring Provider Family Medicine; Visit Provider Family Medicine
DX: R41.89 Other symptoms and signs involving cognitive functions and awareness (principal)
CPT/HCPCS: 70553

== ENCOUNTER → 2022-09-26 15:28 | Outpatient (CLI) | payer MEDICARE, OTHER, SELFPAY ==
--- NOTE | 2022-09-26 | DI.MG.S_ITS ---
BILATERAL DIGITAL SCREENING MAMMOGRAM 3D/2D WITH CAD: 09/26/2022 CLINICAL: Routine screening. Family history of breast cancer. Comparison is made to exams dated: 09/22/2021 mammogram - [facility], 09/07/2020 mammogram, and 10/20/2018 mammogram - [facility]. There are scattered areas of fibroglandular density in both breasts (category b / 25%-50% glandular tissue). Current study was also evaluated with a Computer Aided Detection (CAD) system. No significant masses, calcifications, or other findings are seen in either breast. There has been no significant interval change. Right dense lymph nodes again seen. IMPRESSION: NEGATIVE There is no mammographic evidence of malignancy. A 1 year screening mammogram is recommended. Based on the Tyrer Cuzick model (a risk assessment model) the patient's lifetime risk is 16.5% and her 10 year risk is 16.5%. According to the ACR, ACS, and NCCN guidelines, an annual breast MRI exam along with mammogram is recommended if the patient's lifetime risk is 20% or greater. This exam was interpreted at Station ID: [id number]. NOTE: For mammograms, a report in lay terms will be sent to the patient. Approximately 15% of breast malignancies will not be visualized mammographically. In the management of a palpable breast mass, a negative mammogram must not discourage biopsy of a clinically suspicious lesion. Electronically Signed By: Stef Corley M.D. lc/:09/27/2022 14:09:53 letter sent: Normal Exam ACR BI-RADS Category 1: Negative [id number]
== END ==
PROVIDERS: PCP Family Medicine; Referring Provider Family Medicine; Visit Provider Family Medicine
DX: Z12.31 Encounter for screening mammogram for malignant neoplasm of breast (principal); Z80.3 Family history of malignant neoplasm of breast
CPT/HCPCS: 77063; 77067

== ENCOUNTER → 2023-07-22 15:47 | Outpatient (CLI) | payer MEDICARE, OTHER, SELFPAY ==
--- NOTE | 2023-07-22 | DI.US.S_ITS ---
PROCEDURE: US ABDOMEN LIMITED INDICATIONS: Right upper quadrant pain TECHNIQUE: Real-time scanning was performed of the abdominal and retroperitoneal organs, with image documentation. COMPARISON: None. FINDINGS: Liver: Liver is normal in size and homogeneous in echotexture. Gallbladder: Multiple solid-appearing nodules are noted in non dependent portion of gallbladder wall measures up to 7 mm in size. No internal vascularity is seen. Focal thickening of gallbladder wall up to 5 mm in thickness is noted. No pericholecystic fluid or sonographic Nj sign. No mobile gallstones. Biliary ducts: Intrahepatic bile ducts are non-dilated. Extrahepatic bile duct caliber measures 8.6 mm. Normal is 6-7 mm or less in diameter, or 10 mm or less post-cholecystectomy. Pancreas: Visualized portions of the pancreas are sonographically normal. Miscellaneous: No free abdominal fluid. Right kidney measures 11.5 cm in length. Multiple simple appearing right renal cysts are noted measures up to 5.1 x 3.6 x 4.7 cm in size. IMPRESSION: 1. Multiple gallbladder polyps measures up to 7 mm in size. Questionable focal gallbladder wall thickening. No sonographic evidence of acute cholecystitis. No evidence of mole bile gallstones. 2. No intrahepatic biliary ductal dilatation. Common bile duct size is mildly prominent for patient's age. No evidence of choledocholithiasis. 3. Normal appearing liver and visualized portion of pancreas. 4. Simple appearing right renal cysts. No hydronephrosis. Dictated by: Gurdeep Manzo M.D. on 07/22/2023 at 21:40 Approved by: Gurdeep Manzo M.D. on 07/22/2023 at 21:42
== END ==
LOC: US 15:48
PROVIDERS: PCP Family Medicine; Referring Provider Registered Nurse; Visit Provider Registered Nurse
DX: K82.4 Cholesterolosis of gallbladder (principal); N28.1 Cyst of kidney, acquired; R10.11 Right upper quadrant pain
CPT/HCPCS: 76705

== ENCOUNTER 2023-09-09 11:07 | Day surgery (SDC) | payer MEDICARE, OTHER, SELFPAY ==
[2023-09-03 12:07] VITALS: BMI 21.6
[2023-09-09] VITALS (11 sets, daily range): BP systolic 102–176; BP diastolic 53–84; PULSE 59–89; RESP 16–22; TEMP 36.4–36.6; O2SAT 92–98; BMI 21.6
--- NOTE | 2023-09-09 | PATH_ITS ---
[facility] Accession Number: [id number] . 01 Material submitted: . gallbladder - GALLBLADDER . 01 Diagnosis: Gallbladder, cholecystectomy: Chronic cholecystitis. Negative for malignancy. TXN 09/13/2023 1245 Local . 01 Electronically signed: . Tawfekhurram Singer MD, Pathologist NPI- [id number] . 01 Gross description: . Received in formalin with two identifiers and gallbladder, is an intact gallbladder, 7.1 x 2.9 x 2.6 cm, with green, roughened serosa. The cystic duct margin is inked blue, and no pericystic lymph node is identified. The lumen contains dark green viscous bile with no calculi in the lumen or the container. The mucosa is green and velvety with no yellow discoloration, polyps, or lesions identified. The garcia average 0.1 cm thick. Senior Net Developer sections to include the cystic duct margin and full thickness sections are submitted in A1. ([id number]) /MRV 09/10/2023 1722 Local . 01 Pathologist provided ICD-10: K81.1 . 01 CPT . 831563 Performed at: [address] [id number] MD Jimbo Dumas MD Phone: [phone]
[2023-09-09] MEDS: ACETAMINOPHEN 325 MG TABLET 650 MG PO ×2 (12:48→20:28)
[2023-09-09] MEDS: LACTATED RINGERS 1,000 ML 84 ML IV (12:49)
--- NOTE | 2023-09-09 13:04 | PM.HP.1 ---
History of Present Illness History of Present Illness Date Patient Seen: 09/09/23 Time Patient Seen: 13:05 Chief complaint: OPB Narrative: Miriam is a 77 year old woman with gallbladder polyps versus stones on ultrasound and biliary colic. She also has Alzheimer's dementia. [facility] [place] Medical History Hypertension Alzheimer disease History of bladder cancer Lumbosacral radiculopathy at L4 Lumbosacral spondylosis with radiculopathy Anxiety Social History marital status: household members: spouse lives independently: Yes Smoking Status: Never smoker Meds Home Medications and Allergies Home Medications Medication Instructions Recorded Confirmed Type aspirin 81 mg tablet,delayed 81 mg PO DAILY ##0 07/21/17 09/09/23 History release atorvastatin 80 mg tablet (Lipitor) 80 mg PO BEDTIME ##0 07/21/17 09/09/23 History cholecalciferol (vitamin D3) 125 5,000 unit PO DAILY ##0 07/21/17 09/09/23 History mcg (5,000 unit) capsule losartan 100 1 tab PO DAILY 08/07/23 09/09/23 History mg-hydrochlorothiazide 12.5 mg tablet memantine 5 mg tablet (Namenda) 5 mg PO DAILY 08/07/23 09/09/23 History Allergies Allergy/AdvReac Type Severity Reaction Status Date / Time Sulfa (Sulfonamide Allergy Unknown Verified 09/09/23 12:22 Antibiotics) Exam Vital Signs (past 8 hours): - 09/09/23 12:28 Temperature 97.6 F Pulse Rate 74 Respiratory Rate 16 Blood Pressure 172/68 H Pulse Oximetry 98 Oxygen Delivery Method Room Air Oxygen Delivery Method Room Air Const General: No acute distress Resp Effort & Inspection: normal respiratory effort Assessment & Plan Assessment and plan (1) Biliary colic: Status: Acute Plan We reviewed the risks and benefits of laparoscopic cholecystectomy for biliary colic and she would like to proceed.
[2023-09-09] MEDS: CEFAZOLIN 2 GM/100 ML PREMIX 100 ML IV (13:55)
--- NOTE | 2023-09-09 14:09 | SUR.OPER ---
Supine on padded OR bed, head on pillow, safety belt at thigh, left arm padded and tucked at side. Right arm secured on padded arm board <90 degrees abduction. Legs uncrossed. Padded footboard in place. Tape over blanket to secure lower legs.
[2023-09-09] MEDS: BUPIVACAINE 0.5% W/ EPI (PF) 30 ML VIAL INJ (15:06)
--- NOTE | 2023-09-09 15:24 | PM.OP.1 ---
Operative Date/Time/Diagnoses Date of procedure: 09/09/23 Time of procedure: 15:24 Pre-op diagnosis: Biliary colic Post-op diagnosis: same Procedure & Clinicians Procedure: Laparoscopic cholecystectomy Same procedure as scheduled: Yes Surgeon: Hubert Queen Anesthesia Type: General Operative Notes Procedure in detail: The patient was given preoperative antibiotics. The patient was brought to the operating room and placed on the table in the supine position. General endotracheal anesthesia was induced. The abdomen was prepped and draped. A time-out was performed. We made a 1 cm infraumbilical incision through the old midline scar. We dissected down to the base of the umbilical stalk using cautery. We grasped the umbilical stalk with a Dione clamp to elevate the abdominal wall. We scored the fascia in the midline with cautery. We grasped the posterior sheath and peritoneum between tonsils and divided sharply with scissors. The Roxana port was placed and the abdomen was insufflated to 15 mmHg. A 5 mm 30 degree laparoscopic was inserted. There were some adhesions to the anterior abdominal wall near the umbilicus. Next, we placed 5 mm ports in the subxiphoid position and right upper quadrant at the midclavicular line and anterior axillary line. The patient was then positioned in reverse Trendelenburg and the table was tilted to the left. The gallbladder was grasped at the dome and retracted cephalad. There were numerous adhesions of mesenteric tissue over the gallbladder which were carefully dissected with a combination of cautery, blunt and sharp dissection. Eventually we were able to get the gallbladder free of the adhesions and retracted cephalad. We then dissected the cystic structures with a combination of hook cautery and blunt dissection. We obtained a critical view. We placed clips on the cystic duct and artery and divided the cystic duct and artery sharply between the clips. The gallbladder was then dissected off the liver and placed in a specimen retrieval bag. We irrigated the right upper quadrant and all the aspirate returned clear. We then looked back at the umbilical port through one of the right lateral ports. It did appear that there was a small serosal tear on a loop of bowel that had been adherent to the anterior abdominal wall. We then removed the 5 mm ports under direct vision we removed the Roxana port and the specimen. We extended the skin and fascial incisions to a proximally 3 cm and pulled out the loop of bowel with a serosal tear. We then closed the serosal tear transversely with 3 interrupted 3-0 silk sutures. The bowel loop was then dropped back into the abdomen. We then injected some local into the fascia and closed the fascia with four interrupted 0 Vicryl sutures. The skin incisions were closed with 4-0 Monocryl and Steri-Strips were applied. Band-Aids were applied over the Steri-Strips. EBL: 20 mL Specimen: Gallbladder and contents Post-operative Condition: stable Disposition: PACU
[2023-09-09] MEDS: fentaNYL 100 MCG/2 ML INJ IV (15:35)
[2023-09-09] MEDS: OXYCODONE IR 5 MG TABLET PO (15:38)
[2023-09-09] MEDS: ATORVASTATIN 20 MG TABLET 80 MG PO (20:28)
--- NOTE | 2023-09-09 22:55 | PC.NURSE ---
Pt. pulled out her IV accessed, cath. intact. Dr. Queen notified ordered not to restart her IV line.
--- NOTE | 2023-09-10 01:32 | PC.NURSE ---
Pt. very confusion, disoriented to time & situation. Knows her name & she's she keeps on saying I need to get dressed & go to [facility]din. Reoriented to time & place & frequent reassessment of her pain level, but she been denying & saying I have no pain. But C/O being nervous & frequent urination. Notified Dr. Queen & reported all the incidents, mentioned that she takes Memantine 5 mg. daily. Ordered her Namenda & if it does not work to call her PCP. No order for a UA, will implement order & monitor.
[2023-09-10] MEDS: MEMANTINE HCL 5 MG TABLET PO ×2 (01:51→08:47)
[2023-09-10 05:36] VITALS: BP 157/56; PULSE 82; RESP 16; TEMP 36.9; O2SAT 96
[2023-09-10] MEDS: ACETAMINOPHEN 325 MG TABLET 650 MG PO (06:16)
[2023-09-10 07:35] VITALS: BP 160/58; PULSE 78; RESP 16; TEMP 36.9; O2SAT 97
[2023-09-10 08:46] VITALS: BP 160/58; PULSE 78
[2023-09-10] MEDS: LOSARTAN 50 MG TABLET 100 MG PO (08:46)
[2023-09-10] MEDS: hydroCHLOROthiazide 25 MG TABLET 12.5 MG PO (08:47)
--- NOTE | 2023-09-10 12:13 | CM.DANOTE ---
DCP Assessment note Pt is a 77yo F here following lap annabelle with Dr. Queen on 09/09/23. PCP [facility] [employer] and [place] COMPUTER SYSTEM SPECIALIST reviewed EMR. Per RN report, pt is steady on feet with ambulation, no pain or nausea. RN reports pt lives alone but has supportive friends/neighbors. COMPUTER SYSTEM SPECIALIST met with pt, Friend/POA/next door neighbor Grisel ([phone]), and friend Marbella. Friends report pt lives alone in [place] but has a rotating cast of friends that check in on her daily to assist with needs. Friends transport pt/bring her things as needed. Friends report overall, she does well at home with caring for self besides meals. Friends working on meal plan involving home delivery services/ensure. POA reports pt ambulates indep, no DME, at baseline,. Grisel reports Michael Dallas ([employer]) remains as contact but is not support, lives in [place]. Other contact on chart (michael and yinka fuchs) no longer supportive neighbors. Friend/POA/pt deny other CM needs at this time, report that they have friend Delmis that helps them navigate appropriate resources/will help them with the LTC plan needs as it comes up. Plan: anticipate dc home today with POA support, transport with POA in POV. Deny CM needs at this time. CM team will continue to follow as needed. ROSA ISELA French Discharge Planning/Care Management CM Discharge Assessment Start: 09/10/23 12:12 Freq: Status: Active Protocol: Document 09/10/23 12:12 (Rec: 09/10/23 12:13 [id number]) Discharge Planning Assessment Assigned Auto Engine Mechanic ROSA ISELA Arce DPOA/Assigned Designee Name Grisel LISA/friend Contact Information [phone] Advance Directives? No History Provided By Patient,Friend,Medical Record Prior Living Arrangements House Household Members none Type of transporation used prior to Relies on Others admit Needs Assistance With Meal Prep,Managing Medications ,Home Chores / Shopping Barriers to Discharge No Discharge Plan Home Transportation Arrangement Grisel/lucy in POV Referrals Initiated None needed Whiteboard Updated in Patient Room with Yes name and ext. 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 No Hx Sleep Apnea No Currently Taking a Beta Igor No Anti-Coagulant Therapy No Cardiac Testing No Hx Pacemaker/ICD No Pacemaker Rep Required? No Cardiac Clearance Received No Gastrointestinal Symptoms Abdominal Pain Urinary Catheter Present No Hx Urinary Self Catheterization No Diabetes No Patient No Lactating No Marital Status Lives With spouse Patient Discharge Plan Description Return Home Advance Directives? No
--- NOTE | 2023-09-10 13:01 | PC.NURSE ---
Pt is dressed and ready for discharge home with POA/Friends. NO IV is present. Went over d/c instructions with Pt and Friend Grisel. No change to prescriptions, follow up appointment is already scheduled. Reviewed stroke education and s/s of infection, showering, lifting no more than 20 pounds, and encouraged Pt to drink plenty of fluids to prevent constipation or dehydration. There were no further questions. Pt will be taken out via w/c by SYSTEMS TECHNOLOGIST to POV with Grisel and all belongings.
== END 2023-09-10 13:16 | disposition home or self-care (01) ==
LOC: OR 11:15 → AC 16:23
PROVIDERS: PCP Family Medicine; Referring Provider Surgery; Visit Provider Surgery
PROC: 0FT44ZZ Resection of Gallbladder, Percutaneous Endoscopic Approach (ICD-10-PCS; CPT 47562; principal; 2023-09-09 12:45)
DX: K80.10 Calculus of gallbladder with chronic cholecystitis without obstruction (principal)
CPT/HCPCS: 47562; J0330; J0690; J2405; J2704; J3010

== ENCOUNTER → 2024-09-19 12:30 | Outpatient (ROUT) | payer MEDICARE, OTHER, SELFPAY ==
[2024-09-19 12:30] VITALS: BMI 21.6
[2024-09-19 12:41] LABS: Appearance Urine UA CLEAR; Bilirubin Urine UA NEGATIVE (NEGATIVE); Color Urine UA YELLOW; Glucose Urine UA NEGATIVE (Negative); Ketones Urine UA TRACE (NEGATIVE); Leukocyte Esterase Urine UA 1+ (NEGATIVE); Nitrite Urine UA NEGATIVE (Negative); Occult Blood Urine UA NEGATIVE (Negative); Protein Urine UA NEGATIVE (Negative); Specific Gravity Urine UA 1.015 (1.000-1.035); Urobilinogen Urine UA 0.2 E.U./dL (0.2)
[2024-09-19 12:57] LABS: Bacteria Urine Few (2-10); RBC Urine None Seen (0-5/HPF); Urine Volume 10mL (spun); WBC Urine 5-10/HPF (0-5/HPF)
[2024-09-19 12:58] LABS: Culture Indicated Urine Specimen Cultured; Squamous Epithelial Cell Urine 0-1 /HPF (0-5/HPF)
== END ==
LOC: LAB 12:31
PROVIDERS: PCP Family Medicine; Visit Provider Nurse Practitioner Family
DX: Z13.89 Encounter for screening for other disorder (principal)
CPT/HCPCS: 81001; 87086

== ENCOUNTER → 2025-02-01 15:16 | Outpatient (CLI) | payer MEDICARE, OTHER, SELFPAY ==
[2024-09-19 12:30] VITALS: BMI 21.6
[2025-02-01 16:38] LABS: Add Manual Diff / Slide Review NO; Hematocrit 33.8 % (36-46); Hemoglobin 11.2 g/dL (12.0-16.0); Lymphocytes Absolute Auto 1500 /uL (1100-4500); Mean Corpuscular HGB Conc 33.2 % (30-36); Mean Corpuscular Hemoglobin 30.4 PG (26-34); Mean Corpuscular Volume 91.6 fL (80-100); Platelet Count 248 X10^3/uL (150-400)
[2025-02-01 17:10] LABS: Alanine Aminotransferase 21 IU/L (<35); Albumin 4.1 g/dL (3.5-5.0); Albumin Globulin Ratio 1.6 (1.0-2.8); Alkaline Phosphatase 89 U/L (38-126); Blood Urea Nitrogen 27 mg/dL (7-17); Calcium 9.9 mg/dL (8.4-10.2); Carbon Dioxide 24 mmol/L (22-32); Chloride 106 mmol/L (98-107); Estimated Glomerular Filt Rate 58 mL/min (>60); Globulin 2.6 g/dL (1.7-4.1); Glucose 98 mg/dL (70-99); HEMOLYSIS < 15 (0-50); Potassium 4.2 mmol/L (3.4-5.1); Sodium 140 mmol/L (137-145); Total Protein 6.7 g/dL (6.3-8.2)
[2025-02-01 17:35] LABS: Thyroid Stimulating Hormone 1.32 uIU/mL (0.47-4.68)
[2025-02-01 17:54] LABS: Vitamin B12 > 1000 pg/mL (239-931)
== END ==
PROVIDERS: PCP Family Medicine; Referring Provider Nurse Practitioner Family; Visit Provider Nurse Practitioner Family
DX: F03.94 Unspecified dementia, unspecified severity, with anxiety (principal)
CPT/HCPCS: 36415; 80053; 82607; 84443; 85025